=== PATIENT | male | born 1965 | race African-American/Black ===

== ENCOUNTER 2018-08-03 21:17 | Observation (INO) | payer OTHER ==
[~2018-08-03] VITALS: Ht 185.4 cm; Wt 203.2 kg
[2018-08-03 21:26] VITALS: BP 120/74
--- NOTE | 2018-08-03 21:26 | NUR ---
PT TAKEN TO BED 7
--- NOTE | 2018-08-03 21:41 | NUR ---
X-Ray at bedside.
--- NOTE | 2018-08-03 21:41 | NUR ---
52/M PRESENTS TO ED WITH FAMILY, C/O 9/10 [place] INTERMITTENT PRECORDIAL CHEST PAIN, X2 DAYS INTERMITTENTLY. PT REPORTS WORSENING TODAY X1HR WHILE HAVING A BM. PT REPORTS BRIGHT RED BLOOD IN STOOL WELL LAST NIGHT. PT DENIES SOB, N/V. PT AOX4, GCS 15, RR EVEN AND UNLABORED. LUNG SOUNDS CLEAR BL. BS ACTIVE X4, ABD SOFT LARGE ROUND NONTENDER. CONNECTED TO MONITOR. HX HTN, BIPOLAR, MENTAL DISABILITY
--- NOTE | 2018-08-03 21:51 | NUR ---
Dr. Jack evaluating patient at bedside.
[2018-08-03 22:00] LABS: BASOPHILS % (AUTO) 0.5 % (0.0-2.0); EOSINOPHILS # (AUTO) 0.1 K/uL (0-0.4); EOSINOPHILS % (AUTO) 0.7 % (0.0-4.0); HEMATOCRIT 38.8 % (36-52); HEMOGLOBIN 12.5 g/dL (12.0-18.0); LYMPHOCYTES # (AUTO) 3.2 K/uL (2.0-11.5); LYMPHOCYTES % (AUTO) 38.1 % (20.5-51.1); MEAN CORPUSCULAR HEMOGLOBIN 26 pg (27-31); MEAN CORPUSCULAR HGB CONC 32 g/dL (33-37); MEAN CORPUSCULAR VOLUME 80.9 fL (80-94); MONOCYTES # (AUTO) 0.6 K/uL (0.8-1.0); MONOCYTES % (AUTO) 7.7 % (1.7-9.3); NEUTROPHILS # (AUTO) 4.4 K/uL (1.8-7.7); PLATELET COUNT (AUTO) 286 K/uL (140-450); RED CELL DISTRIBUTION WIDTH 15.2 % (11.6-13.7); WHITE BLOOD COUNT (AUTO) 8.3 K/uL (4.8-10.8)
[2018-08-03] MEDS ORDERED: HYDR-9 PO (22:02)
[2018-08-03] MEDS ORDERED: ASPI325T99 PO (22:02)
[2018-08-03] MEDS ORDERED: PERP8TAB PO (22:02)
[2018-08-03] MEDS ORDERED: DIPH50CA69 PO (22:02)
[2018-08-03] MEDS ORDERED: IBUP-2213 PO (22:02)
[2018-08-03 22:16] LABS: ANION GAP 14.2 (8-16); CARBON DIOXIDE 26.2 mmol/L (21-32); CREATININE 1.3 mg/dL (0.7-1.3); POTASSIUM 3.4 mmol/L (3.5-5.1)
[2018-08-03 22:21] LABS: ALBUMIN 3.3 g/dL (3.4-5.0); PROTHROMBIN TIME 10.3 secs (10.8-13.4); TOTAL BILIRUBIN 0.2 mg/dL (0.0-1.0)
--- NOTE | 2018-08-03 23:25 | NUR ---
Patient will be admitted to care of DR. CEBALLOS. Admited to TELE. Will go to room 119A. Belongings list completed. Report to PRINCE FRY.
--- NOTE | 2018-08-03 23:25 | NUR ---
ADMITTED A 52 Y/O MALE FROM [facility]IA [facility] WITH CHIEF COMPLAINT OF CHEST PAIN. PATIENT ABLE TO TRANSFER FROM [facility] TO BED BY HIMSELF WITH STEADY GAIT. PATIENT ADMITTED FOR OBSERVATION. SKIN INTACT.MRSA NASAL SWAB DONE. URINE OBTAINED AND SENT TO LAB. PERSONAL BELONGINGS IN POSSESSION BY THE CAREGIVER ILAN.PATIENT DENIES CHEST PAIN AT THIS TIME. TELEPHONE ORDER MADE BY DR. GABRIEL AND ORDERS MADE PER MD INSTRUCTION. EXPLAINED PLAN OF CARE TO CAREGIVER. BED IN LOW LOCKED POSITION. EXPLAINED AND EMPHASIZED TO CALL FOR ASSISTANCE VIA CALL LIGHTS. SNACK GIVEN . BLANKET PROVIDED FOR COMFORT. ALL NEEDS ATTENDED.
[2018-08-04] MEDS ORDERED: NITROGLYCERIN 2% 1 GM PKT TP SCH
[2018-08-04 01:22] LABS: APPEARANCE,URINE CLEAR (CLEAR); BILIRUBIN,URINE NEGATIVE (NEGATIVE); BLOOD, URINE NEGATIVE (NEGATIVE); COLOR,URINE YELLOW (YELLOW); LEUKOCYTE ESTERASE ,URINE NEGATIVE (NEGATIVE); NITRITE, URINE NEGATIVE (NEGATIVE); UGLUCOSE NEGATIVE (NEGATIVE)
--- NOTE | 2018-08-04 02:00 | NUR ---
SEEN PATIENT ASLEEP ON BED. NO C/C 0F CHEST PAIN AT THIS TIME. BED IN LOW LOCKED POSITION. NO S/S OF DISTRESS NOTED. WILL CONTINUE TO MONITOR.
[2018-08-04 04:00] VITALS: BP 104/52
--- NOTE | 2018-08-04 04:00 | NUR ---
SEEN PATIENT RESTING ON BED.DENIES CHEST PAIN AT THIS TIME. [address] NO S/S OF DISTRESS NOTED .
[2018-08-04] MEDS: FUROSEMIDE 20 MG TAB PO SCH ×2 (04:57→14:38)
[2018-08-04] MEDS: NITROGLYCERIN 2% 1 GM PKT TP SCH ×2 (05:49→14:37)
--- NOTE | 2018-08-04 06:24 | NUR ---
GAVE REPORT TO AM SHIFT RN AT BEDSIDE FOR CONTINUITY OF CARE. ALL NEEDS ATTENDED. PATIENT IN STABLE CONDITION.CALL LIGHT WITHIN REACH. Addendum: 08/04/18 at 0632 by Prem Harrington RN 0720AM NOTES Addendum: 08/04/18 at 0641 by Prem Harrington RN EARLY ENTRY NOTE
[2018-08-04] MEDS ORDERED: PANTOPRAZOLE 40 MG TABEC PO SCH (06:30)
--- NOTE | 2018-08-04 07:25 | NUR ---
RECEIVED REPORT FROM EYEDOTTER RN. PT A/O X4. ABLE TO MAKE NEEDS KNOWN. SKIN DRY AND WARM TO TOUCH. ON O2 AT 2 LTR/MIN VIA N/C. LUNGS CLEAR. ABDOMEN SOFT, ROUND AND NON-TENDER. ACTIVE BOWEL SOUND. SKIN INTACT. DENIES ANY CHEST PAIN, SOB OR RESPIRATORY DISTRESS. DENIES ABDOMINAL PAIN OR DISCOMFORT. DENIES N/V/D. ON TELE MONITORING.
--- NOTE | 2018-08-04 07:55 | NUR ---
PATIENT HAS BEEN SCREENED AND CATEGORIZED HIGH NUTRITION RISK. PATIENT WILL BE SEEN WITHIN 1-2 DAYS OF ADMISSION. 08/04/18-08/05/[address]
[2018-08-04 08:00] VITALS: BP 113/65
[2018-08-04] MEDS ORDERED: NON-FORMULARY ITEM (Lisinopril/Hydrochlorothiazide (Lisinopril-Hctz 20-25 mg Tab) 1 TAB) PO SCH (09:00)
[2018-08-04] MEDS ORDERED: LISINOPRIL 20 MG TAB PO SCH (09:00)
[2018-08-04] MEDS ORDERED: PERPHENAZINE 8 MG PO SCH (09:00)
[2018-08-04] MEDS ORDERED: HYDROCHLOROTHIAZIDE 25 MG TAB PO SCH (09:00)
[2018-08-04] MEDS: PERPHENAZINE 2 MG TAB PO SCH ×3 (09:20→16:46)
[2018-08-04 09:30] LABS: BASOPHILS % (AUTO) 0.5 % (0.0-2.0); EOSINOPHILS # (AUTO) 0.1 K/uL (0-0.4); EOSINOPHILS % (AUTO) 0.9 % (0.0-4.0); HEMOGLOBIN 11.8 g/dL (12.0-18.0); LYMPHOCYTES # (AUTO) 2.7 K/uL (2.0-11.5); LYMPHOCYTES % (AUTO) 39.1 % (20.5-51.1); MEAN CORPUSCULAR HEMOGLOBIN 26 pg (27-31); MEAN CORPUSCULAR HGB CONC 32 g/dL (33-37); MEAN CORPUSCULAR VOLUME 81.3 fL (80-94); MONOCYTES # (AUTO) 0.6 K/uL (0.8-1.0); MONOCYTES % (AUTO) 8.7 % (1.7-9.3); NEUTROPHILS # (AUTO) 3.4 K/uL (1.8-7.7); NEUTROPHILS % (AUTO) 50.8 % (42.2-75.2); PLATELET COUNT (AUTO) 273 K/uL (140-450); RED BLOOD CELL COUNT(AUTO) 4.55 MIL/uL (4.20-6.10); RED CELL DISTRIBUTION WIDTH 15.3 % (11.6-13.7); WHITE BLOOD COUNT (AUTO) 6.8 K/uL (4.8-10.8)
--- NOTE | 2018-08-04 09:45 | NUR ---
RECEIVED CALL FROM PT' FLIGHT PHYSICIAN XIOMARA OSBORN. UPDATED PATIENT CONDITION. HAVE HER TO SPEAK OVER PHONE WITH DR. CEBALLOS FOR PLAN OF CARE.
[2018-08-04 12:00] VITALS: BP 145/76
--- NOTE | 2018-08-04 12:00 | NUR ---
PT DENIES ANY CHEST PAIN OR DISCOMFORT. NO SOB OR RESPIRATORY DISTRESS NOTED. DENIES NAUSEA, VOMITING OR DIARRHEA.
--- NOTE | 2018-08-04 12:10 | NUR ---
PLATFORM LOADER XIOMARA OSBORN IN. UPDATED PT CONDITIONS AND PLAN OF CARE. SHE STATED THAT SHE WANTS TO SIGN OFF THE PATIENT. TOLD HER NURSE NEED TO NOTIFY DR. CEBALLOS, SAID OK. CALLED DR. CEBALLOS MADE AWARE THAT PT'S PLATFORM LOADER WANTS TO SIGN OFF THE PATIENT. DR. CEBALLOS REQUESTED TO HAVE PLATFORM LOADER OVER PHONE TO SPEAK. HAVE PLATFORM LOADER TO SPEAK WITH DR. CEBALLOS. AFTER SPEAKING WITH DR. CEBALLOS, SHE HUNG OFF PHONE. CHARGE NURSE AND CANAL DRIVER MADE AWARE.
[2018-08-04] MEDS ORDERED: SUCR1TAB7 PO (13:18)
[2018-08-04] MEDS ORDERED: PANT40EC28 PO (13:18)
--- NOTE | 2018-08-04 14:42 | NUR ---
08/04/18 RD INITIAL ASSESSMENT COMPLETED PLEASE REFER TO NUTRITION ASSESSMENT UNDER CARE ACTIVITY FOR ESTIMATED NUTRITIONAL NEEDS. 1. CONTINUE CARDIAC DIET TOLERATED 2. RD TO FOLLOW-UP 3-5 DAYS, MODERATE RISK YUKI LUNDBERG RD
--- NOTE | 2018-08-04 15:00 | NUR ---
DENIES CHEST PAIN. DENIES ANY ABDOMINAL PAIN, NAUSEA OR VOMITING. DENIES DIZZINESS. NO SOB OR RESPIRATORY DISTRESS NOTED. ON ROOM AIR SPO2 98%.
--- NOTE | 2018-08-04 15:00 | NUR ---
Out Patient follow up to see PCP Dr. Jerrod Summers on 08/06/18 at 1530. Clinic address [address] [place] [address]. [address] [place] [address]. Clinic number . Appointment slip given to Pilar MORRISONset up and charger nurse and she will give instructions to pt's home care music therapist Dustin Kilgore upon discharge.
--- NOTE | 2018-08-04 15:14 | NUR ---
PT REMAINS AFEBRILE. HR WNL. NO ACUTE RESPIRATORY DISTRESS NOTED. CONTINUE ON SAME VENT SETTING. CONTINUE ON G-TUBE FEEDING. 0 RESIDUAL. RT AT BEDSIDE. WILL CONTINUE TO MONITOR. Addendum: 08/04/18 at 1517 by Sudha Castro RN WRONG PT CHARTING
[2018-08-04 15:47] VITALS: BP 133/73
[2018-08-04 16:25] VITALS: BP 133/74
--- NOTE | 2018-08-04 16:42 | NUR ---
1210 MET WITH CAREGIVER ILAN WHO WAS SPEAKING WITH WHO SHE IDENTIFIED PATIENTS SISTER. SPOKE WITH LEOPOLDO SCHWARZ JULIETH WHO IDENTIFIED HERSELF PATIENTS SISTER [phone]. PER LEOPOLDO SCHWARZ SHE AND ANOTHER ONE OF PATIENTS SISTERS CURRENTLY LIVE IN [employer] AND THAT PATIENT DOES NOT HAVE AN ADVANCED DIRECTIVE BUT ILAN PATIENTS GRIP WRAPPER USUALLY MAKES PATIENTS DECISIONS BUT DOES KEEP HIS SISTERS INFORMED. SPOKE WITH ILAN AND SHE STATED THAT SHE HAS BEEN PATIENTS GRIP WRAPPER SINCE 2014 AND THAT SHE DOES RECEIVE [employer] HOURS AND THE ARRANGEMENT WITH THE FAMILY IS THAT SHE WAS TO BE A GRIP WRAPPER TO WHICH SHE AGREED. ILAN VOICED HER CONCERN THAT PATIENT IS WANTING TO GO HOME AND SHE QUESTIONED IF PATIENTS GI FOLLOW UP COULD BE DONE AN OUTPATIENT. SHE DID UNDERSTAND THAT PATIENT DID NEED TO WAIT FOR CARDIAC CLEARANCE HE HAD PRESENTED TO THE ED WITH C/O CHEST PAIN. DR CEBALLOS WAS CALLED AND INFORMED OF THE CAREGIVERS REQUEST TO FOREGO THE GI CONSULT AND ARRANGE OUT PATIENT TO WHICH HE AGREED. ALYSSIA CHARGE NURSE INFORMED.
--- NOTE | 2018-08-04 17:40 | NUR ---
Refused flu shot and PNA vaccine.
--- NOTE | 2018-08-04 17:41 | NUR ---
Patient discharged with v/s stable. Written and verbal after care instructions given and explained to patient and patient's respiratory care program director. Patient alert, oriented and verbalized understanding of instructions. All questions addressed prior to discharge. ID band removed. IV cannula removed, site intact, covered with dressing. Patient advised to follow up with PMD, Dr. Jerrod Summers on 08/07/18 at 3:30 pm. [address] [facility] [address]. # [phone]. Patient and respiratory care program director verbalized understanding. Patient educated on indication of medication including possible reaction and side effects. Opportunity to ask questions provided and answered. All discharge papers provided. Pt assisted to private vehicle via wheelchair safely.
[2018-08-04] MEDS ORDERED: diphenhydrAMINE 50 MG CAP PO PRN (21:00)
[2018-08-04] MEDS ORDERED: LACTULOSE 20 GM/30 ML UDC PO SCH (21:00)
== END 2018-08-04 17:35 | disposition home or self-care (01) ==
LOC: MED 21:17 → MTU 22:23
PROVIDERS: ADMIT Hospitalist; ATTEND Hospitalist
DX: R07.89 Other chest pain (principal); K92.1 Melena; F99 Mental disorder, not otherwise specified; M54.9 Dorsalgia, unspecified; G89.29 Other chronic pain; I10 Essential (primary) hypertension; E66.01 Morbid (severe) obesity due to excess calories
CPT/HCPCS: 36415; 71045; 80053; 81003; 83540; 83880; 84484; 85025; 85610; 85730; 87081; 93005; 99284; G0378; Q0092; 99285